=== PATIENT | female | born 1950 | race Caucasian/White ===

== ENCOUNTER 2016-07-03 14:13 | Emergency (ER) | payer MEDICARE, OTHER ==
--- NOTE | 2016-07-03 14:24 | EDM.PDOC ---
ED HPI GENERAL MEDICAL PROBLEM - General Stated Complaint: RT HAND SOLLOWEN Time Seen by Provider: 07/03/16 14:20 Source of Information: Reports: Patient History Limitations: Reports: No limitations - History of Present Illness INITIAL COMMENTS - FREE TEXT/NARRATIVE: HISTORY AND PHYSICAL: [65-year-old female who presented with edema after surgery] History of Present Illness: [Recent surgery to her right hand thumb she has eczema and Harry wrap is very tight] Review of Systems: As per history of present illness and below otherwise all systems reviewed and negative. Past medical history: As per history of present illness and as reviewed below otherwise noncontributory. Surgical history: As per history of present illness and as reviewed below otherwise noncontributory. Social history: No reported history of drug or alcohol abuse. Family history: As per history of present illness and as reviewed below otherwise noncontributory. Physical exam: Alert and oriented female answering questions appropriately HEENT: Atraumatic, normocehpalic, pupils reactive, negative for conjunctival pallor or scleral icterus, mucous membranes moist, throat clear, neck supple, nontender, trachea midline. Lungs: Clear to auscultation, breath sounds equal bilaterally, chest non tender. Heart: S1S2, regular, negative for clicks, rubs, or JVD. Abdomen: Soft, nondistended, nontender. Negative for masses or hepatossplenmegaly. Negative for costovertebral tenderness. Pelvis: Stable nontender. Genitourinary: Deferred. Rectal: Deferred Extremities: Right hand dorsum of hand with edema fingers are cool bilateral hands, sensation is intact, cap refill 3 seconds, negative for cords or calf pain. Neurovascular unremarkable. Neuro: Awake, alert, oriented. Cranial nerves II through XII unremarkable. Cerebellum unremarkable. Motor and sensory unremarkable throughout. Exam nonfocal. Harry wrap was loosened and improvement to circulation was noted. The patient expressed some relief. Diagnostics: [] Therapeutics: [Loosening of Harry wrap] Impression: [Postoperative edema] Plan: [Continue to use the sling that you have constantly hand above her heart Followup with your surgeon on Wednesday, July 07 as previously scheduled] Definitive disposition and diagnosis as appropriate pending reevaluation and review of above. Onset: today Duration: Hour(s): - Related Data Allergies Allergy/AdvReac Type Severity Reaction Status Date / Time Penicillins Allergy Rash Verified 01/20/16 09:35 Home Meds: Home Meds Omeprazole Magnesium [Prilosec Otc] 20 mg PO DAILY 03/18/15 [History] Pregabalin [Lyrica] 75 mg PO QAM 03/18/15 [History] Pregabalin [Lyrica] 150 mg PO BEDTIME 03/18/15 [History] Rivaroxaban [Xarelto] 15 mg PO BID #20 tablet 12/30/15 [Rx] DULoxetine [Cymbalta] 01/20/16 [History] Past Medical History Cardiovascular History: Reports: Blood clots/VTE/DVT Respiratory History: Reports: None Gastrointestinal History: Reports: GERD 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 History: Reports: None Hematologic History: Reports: None Immunologic History: Reports: None Oncologic (Cancer) History: Reports: Breast - Infectious Disease History Infectious Disease History: Reports: Chicken pox, Measles, Mumps - Past Surgical History Head Surgeries/Procedures: Reports: None HEENT Surgical History: Reports: Tonsillectomy Musculoskeletal Surgical History: Reports: Arthroscopic knee, Joint replacement Oncologic Surgical History: Reports: Mastectomy Other Oncologic Surgeries/Procedures: L mastectomy Social & Family History - Family History Family Medical History: Noncontributory - Tobacco Use Smoking Status *Q: Never Smoker Second Hand Smoke Exposure: No - Caffeine Use Caffeine Use: Reports: Soda - Alcohol Use Days Per Week of Alcohol Use: 0 - Recreational Drug Use Recreational Drug Use: No ED ROS GENERAL - Review of Systems Review Of Systems: ROS reveals no pertinent complaints other than HPI. ED EXAM, GENERAL - Physical Exam Exam: See Below (see dictation) Departure - Departure Time of Disposition: 14:23 Disposition: Home, Self-Care 01 Condition: good Clinical Impression: Edema Qualifiers: Edema type: localized Qualified Code(s): R60.0 - Localized edema Additional Instructions: The following information is given to patients seen in the emergency department who are being discharged to home. This information is to outline your options for follow-up care. We provide all patients seen in our emergency department with a follow-up referral. The need for follow-up, as well as the timing and circumstances, are variable depending upon the specifics of your emergency department visit. If you don't have a primary care physician on staff, we will provide you with a referral. We always advise you to contact your personal physician following an emergency department visit to inform them of the circumstance of the visit and for follow-up with them and/or the need for any referrals to a consulting specialist. The emergency department will also refer you to a specialist when appropriate. This referral assures that you have the opportunity for followup care with a specialist. All of these measure are taken in an effort to provide you with optimal care, which includes your followup. Under all circumstances we always encourage you to contact your private physician who remains a resource for coordinating your care. When calling for followup care, please make the office aware that this follow-up is from your recent emergency room visit. If for any reason you are refused follow-up, please contact the [facility] emergency department at and asked to speak to the emergency department charge nurse. Although up with your surgeon on Wednesday, July 07 as previously scheduled
[2016-07-03 14:39] VITALS: BP 131/80
== END 2016-07-03 14:28 | disposition home or self-care (01) ==
LOC: MW.ED 14:13
DX: R60.0 Localized edema (principal); Z79.899 Other long term (current) drug therapy; Z88.0 Allergy status to penicillin
CPT/HCPCS: 99282; 99283

== ENCOUNTER 2017-03-01 21:53 | Emergency (ER) | payer MEDICARE, OTHER ==
--- NOTE | 2017-03-01 21:56 | EDM.PDOC ---
ED HPI GENERAL MEDICAL PROBLEM - General Stated Complaint: COUGH Time Seen by Provider: 03/01/17 23:11 - History of Present Illness INITIAL COMMENTS - FREE TEXT/NARRATIVE: HISTORY AND PHYSICAL: History of present illness: Patient 66-year-old female presents with concern of cough over the last several days she has history of pulmonary embolism denies chest pain fever chills nausea vomiting or other complaints. Review of systems: As per history of present illness and below otherwise all systems reviewed and negative. Past medical history: As per history of present illness and as reviewed below otherwise noncontributory. Surgical history: As per history of present illness and as reviewed below otherwise noncontributory. Social history: No reported history of drug or alcohol abuse. Family history: As per history of present illness and as reviewed below otherwise noncontributory. Physical exam: HEENT: Atraumatic, normocephalic, pupils reactive, negative for conjunctival pallor or scleral icterus, mucous membranes moist, throat clear, neck supple, nontender, trachea midline. Lungs: Clear to auscultation, breath sounds equal bilaterally, chest nontender. Heart: S1S2, regular, negative for clicks, rubs, or JVD. Abdomen: Soft, nondistended, nontender. Negative for masses or hepatosplenomegaly. Negative for costovertebral tenderness. Pelvis: Stable nontender. Genitourinary: Deferred. Rectal: Deferred. Extremities: Atraumatic, negative for cords or calf pain. Neurovascular unremarkable. Neuro: Awake, alert, oriented. Cranial nerves II through XII unremarkable. Cerebellum unremarkable. Motor and sensory unremarkable throughout. Exam nonfocal. Diagnostics: CBC CMP influenza screen chest x-ray EKG BNP Therapeutics: None Impression: #1 pneumonitis #2 history of pulmonary embolus Definitive disposition and diagnosis as appropriate pending reevaluation and review of above. - Related Data Allergies Allergy/AdvReac Type Severity Reaction Status Date / Time Penicillins Allergy Rash Verified 07/03/16 14:25 Home Meds: Home Meds Omeprazole Magnesium [Prilosec Otc] 20 mg PO DAILY 03/18/15 [History] Pregabalin [Lyrica] 75 mg PO QAM 03/18/15 [History] Pregabalin [Lyrica] 150 mg PO BEDTIME 03/18/15 [History] Rivaroxaban [Xarelto] 15 mg PO BID #20 tablet 10/24/16 [Rx] DULoxetine [Cymbalta] 20 mg PO DAILY 01/20/16 [History] Gabapentin [Neurontin] 400 mg PO BID 03/01/17 [History] Past Medical History Cardiovascular History: Reports: Blood Clots/VTE/DVT Respiratory History: Reports: None Gastrointestinal History: Reports: GERD 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 History: Reports: None Hematologic History: Reports: None Immunologic History: Reports: None Oncologic (Cancer) History: Reports: Breast - Infectious Disease History Infectious Disease History: Reports: Chicken Pox, Measles, Mumps - Past Surgical History Head Surgeries/Procedures: Reports: None HEENT Surgical History: Reports: Tonsillectomy Musculoskeletal Surgical History: Reports: Arthroscopic Knee, Joint Replacement Oncologic Surgical History: Reports: Mastectomy Other Oncologic Surgeries/Procedures: L mastectomy Social & Family History - Family History Family Medical History: Noncontributory - Tobacco Use Smoking Status *Q: Never Smoker Second Hand Smoke Exposure: No - Caffeine Use Caffeine Use: Reports: Soda - Alcohol Use Days Per Week of Alcohol Use: 0 - Recreational Drug Use Recreational Drug Use: No ED ROS GENERAL - Review of Systems Review Of Systems: ROS reveals no pertinent complaints other than HPI. ED EXAM, GENERAL - Physical Exam Exam: See Below (See dictation) Course - Vital Signs Last Recorded V/S: Last Vital Signs Temp 37.3 C 03/01/17 22:08 Pulse 87 03/01/17 22:45 Resp 18 03/01/17 22:45 BP 126/79 03/01/17 22:45 Pulse Ox 97 03/01/17 22:45 - Orders/Labs/Meds Orders: Active Orders 24 hr Category Date Time Status RT Aerosol Therapy [RC] ASDIRECTED Care 03/01/17 22:15 Active Chest 2V [CR] Stat Exams 03/01/17 21:57 Taken Labs: Laboratory Tests 03/01/17 03/01/17 03/01/17 Range/Units 22:08 22:08 22:08 WBC 6.75 (4.0-11.0) K/uL RBC 4.54 (4.30-5.90) M/uL Hgb 13.5 (12.0-16.0) g/dL Hct 41.8 (36.0-46.0) % MCV 92.1 (80.0-98.0) fL MCH 29.7 (27.0-32.0) pg MCHC 32.3 (31.0-37.0) g/dL RDW Std Deviation 44.8 (28.0-62.0) fl RDW Coeff of Brook 13 (11.0-15.0) % Plt Count 252 (150-400) K/uL MPV 9.20 (7.40-12.00) fL Neut % (Auto) 60.4 (48.0-80.0) % Lymph % (Auto) 23.3 (16.0-40.0) % Williamson % (Auto) 12.0 (0.0-15.0) % Eos % (Auto) 3.7 (0.0-7.0) % Baso % (Auto) 0.6 (0.0-1.5) % Neut # (Auto) 4.1 (1.4-5.7) K/uL Lymph # (Auto) 1.6 (0.6-2.4) K/uL Williamson # (Auto) 0.8 (0.0-0.8) K/uL Eos # (Auto) 0.3 (0.0-0.7) K/uL Baso # (Auto) 0.0 (0.0-0.1) K/uL Nucleated RBC % 0.0 /100WBC Nucleated RBCs # 0 K/uL Sodium 139 (136-146) mmol/L Potassium 4.5 (3.5-5.1) mmol/L Chloride 103 (98-110) mmol/L Carbon Dioxide 25 (21-31) mmol/L BUN 16 (6.0-23.0) mg/dL Creatinine 1.1 (0.6-1.5) mg/dL Est Cr Clr Drug Dosing 52.58 mL/min Estimated GFR (MDRD) 49.7 ml/min Glucose 189 H (60-110) mg/dL Calcium 10.9 H (8.8-10.8) mg/dL Total Bilirubin 0.4 (0.1-1.5) mg/dL AST 17 (5-40) IU/L ALT 15 (8-54) IU/L Alkaline Phosphatase 128 (40-150) B-Natriuretic Peptide 36 (<100) PG/ML Total Protein 7.6 (6.0-8.0) g/dL Albumin 4.2 (3.4-4.8) g/dL Globulin 3.4 (2.0-3.5) g/dL Albumin/Globulin Ratio 1.2 L (1.3-2.8) Meds: Medications Discontinued Medications Generic Name Dose Route Start Last Admin Trade Name Christian PRN Reason Stop Dose Admin Albuterol/Ipratropium 3 ml 03/01/17 22:15 03/01/17 22:25 Duoneb 3.0-0.5 Mg/3 Ml NEB 03/01/17 22:16 3 ml ONETIME ONE Administration Departure - Departure Time of Disposition: 23:11 Disposition: Home, Self-Care 01 Condition: Good Clinical Impression: Pneumonitis - Discharge Information Additional Instructions: The following information is given to patients seen in the emergency department who are being discharged to home. This information is to outline your options for follow-up care. We provide all patients seen in our emergency department with a follow-up referral. The need for follow-up, as well as the timing and circumstances, are variable depending upon the specifics of your emergency department visit. If you don't have a primary care physician on staff, we will provide you with a referral. We always advise you to contact your personal physician following an emergency department visit to inform them of the circumstance of the visit and for follow-up with them and/or the need for any referrals to a consulting specialist. The emergency department will also refer you to a specialist when appropriate. This referral assures that you have the opportunity for followup care with a specialist. All of these measure are taken in an effort to provide you with optimal care, which includes your followup. Under all circumstances we always encourage you to contact your private physician who remains a resource for coordinating your care. When calling for followup care, please make the office aware that this follow-up is from your recent emergency room visit. If for any reason you are refused follow-up, please contact the [facility] emergency department at and asked to speak to the emergency department charge nurse. Levaquin albuterol as prescribed follow-up primary medical doctor wanted today' s return as needed as discussed - My Orders Last 24 Hours: My Active Orders 03/01/17 21:57 Chest 2V [CR] Stat 03/01/17 22:15 RT Aerosol Therapy [RC] ASDIRECTED - Assessment/Plan Last 24 Hours: My Active Orders 03/01/17 21:57 Chest 2V [CR] Stat 03/01/17 22:15 RT Aerosol Therapy [RC] ASDIRECTED
[2017-03-01] MEDS ORDERED: Albuterol/Ipratropium 3.0-0.5 MG/3 ML Neb Soln NEB ONE (22:15)
[2017-03-01 23:25] VITALS: BP 127/77
--- NOTE | 2017-03-02 16:47 | CR ---
EXAM DATE: 03/01/17 PATIENT'S AGE: 66 Patient: LUIS ANTONIO HILL Facility: [place], [place] Site . Site : 1950 Study: XRay Chest [id number] 11:04:47 PM Ordering Physician: Doctor Barahona Final Report: Indication: Cough and congestion Technique: Chest 2 views Comparison: None Findings/Impression: Cardiovascular and mediastinum: Upper limits of normal cardiac size. An ectatic , unfolded aorta. Lungs and pleural spaces: Mild left basilar subsegmental atelectasis or scarring. No consolidation or pleural effusions. Bones and soft tissues: Multiple surgical clips in the left breast, axilla and upper abdomen. Apparent mild anterior compression deformity of a lower thoracic vertebral body. Dictated by Frank Zarco MD @ 03/01/2017 11:21:33 PM Dictated by: Frank Zarco MD @ 03/01/2017 23:23:00 (Electronic Signature) Report Signed by Proxy. TALIA
== END 2017-03-01 23:25 | disposition home or self-care (01) ==
LOC: MW.ED 21:53
DX: J18.9 Pneumonia, unspecified organism (principal); Z88.0 Allergy status to penicillin; Z79.899 Other long term (current) drug therapy; Z86.711 Personal history of pulmonary embolism
CPT/HCPCS: 36415; 71020; 71020-26; 80053; 83880; 85025; 87804; 94640; 99283; 99284-25

== ENCOUNTER 2018-05-18 13:24 | Emergency (ER) | payer MEDICARE, OTHER ==
--- NOTE | 2018-05-18 15:27 | US ---
ULTRASOUND EXAMINATION OF the left lower extremity WITH DOPPLER HISTORY: Pain FINDINGS: Examination of the left leg was performed from the groin to the calf region. All visualized segments including common femoral, proximal greater saphenous, superficial femoral, popliteal and calf veins appear patent with good compressibility and augmentation. There is no evidence of deep vein thrombosis. IMPRESSION: No evidence of a DVT.
--- NOTE | 2018-05-18 15:59 | EDM.PDOC ---
ED HPI GENERAL MEDICAL PROBLEM - General Chief Complaint: General Stated Complaint: LT LEG PAIN Time Seen by Provider: 05/18/18 14:13 Source of Information: Reports: Patient History Limitations: Reports: No Limitations - History of Present Illness INITIAL COMMENTS - FREE TEXT/NARRATIVE: History of present illness: []Patient has had pain in her left lower extremity and for the past 2 days. She has a history of blood clots in her legs and her lungs in the past. She denies any fevers, trauma, chest pain or shortness of breath. Review of systems: As per history of present illness and below otherwise all systems reviewed and negative. Past medical history: As per history of present illness and as reviewed below otherwise noncontributory. Surgical history: As per history of present illness and as reviewed below otherwise noncontributory. Social history: No reported history of drug or alcohol abuse. Family history: As per history of present illness and as reviewed below otherwise noncontributory. Physical exam: General: Well developed, well nourished in NAD HEENT: Atraumatic, normocephalic, pupils reactive, negative for conjunctival pallor or scleral icterus, mucous membranes moist, throat clear, neck supple, nontender, trachea midline. Lungs: Clear to auscultation, breath sounds equal bilaterally, chest nontender. Heart: S1S2, regular, negative for clicks, rubs, or JVD. Abdomen: NABS, Soft, nondistended, nontender. Negative for masses or hepatosplenomegaly. Negative for costovertebral tenderness. Pelvis: Stable nontender. Genitourinary: Deferred. Rectal: Deferred. Extremities: Atraumatic, negative for cords or calf pain. Pain is on the lateral leg and there is no distal edema Neurovascular unremarkable. Neuro: Awake, alert, oriented. Cranial nerves II through XII unremarkable. Cerebellum unremarkable. Motor and sensory unremarkable throughout. Exam nonfocal. Skin:warm and dry Diagnostics: Doppler ultrasound left lower extremity negative for DVT Therapeutics: None ED Course: Stable Impression: Left leg pain Prescriptions: None Plan: PRIMARY care Definitive disposition and diagnosis as appropriate pending reevaluation and review of above. 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: Reports: None Endocrine/Metabolic History: Reports: Diabetes, Type II Hematologic History: Reports: None Immunologic History: Reports: None Oncologic (Cancer) History: Reports: Breast - Infectious Disease History Infectious Disease History: Reports: Chicken Pox, Measles, Mumps - Past Surgical History Head Surgeries/Procedures: Reports: None HEENT Surgical History: Reports: Tonsillectomy Musculoskeletal Surgical History: Reports: Arthroscopic Knee, Joint Replacement Oncologic Surgical History: Reports: Mastectomy Other Oncologic Surgeries/Procedures: L mastectomy Social & Family History - Family History Family Medical History: Noncontributory - Tobacco Use Smoking Status *Q: Never Smoker Second Hand Smoke Exposure: No - Caffeine Use Caffeine Use: Reports: Coffee - Recreational Drug Use Recreational Drug Use: No ED ROS GENERAL - Review of Systems Review Of Systems: ROS reveals no pertinent complaints other than HPI. ED EXAM, GENERAL - Physical Exam Exam: See Below (The history of present illness) Course - Vital Signs Last Recorded V/S: Last Vital Signs Temp 98.1 F 05/18/18 13:42 Pulse 90 05/18/18 13:42 Resp 16 05/18/18 13:42 BP 127/81 05/18/18 13:42 Pulse Ox 100 05/18/18 13:42 Departure - Departure Time of Disposition: 15:59 Disposition: Home, Self-Care 01 Condition: Good Clinical Impression: Leg pain, left - Discharge Information *PRESCRIPTION DRUG MONITORING PROGRAM REVIEWED*: Not Applicable *COPY OF PRESCRIPTION DRUG MONITORING REPORT IN PATIENT MADISYN: Not Applicable Referrals: Angeli Ojeda NP [Primary Care Provider] - Additional Instructions: The following information is given to patients seen in the emergency department who are being discharged to home. This information is to outline your options for follow-up care. We provide all patients seen in our emergency department with a follow-up referral. The need for follow-up, as well as the timing and circumstances, are variable depending upon the specifics of your emergency department visit. If you don't have a primary care physician on staff, we will provide you with a referral. We always advise you to contact your personal physician following an emergency department visit to inform them of the circumstance of the visit and for follow-up with them and/or the need for any referrals to a consulting specialist. The emergency department will also refer you to a specialist when appropriate. This referral assures that you have the opportunity for follow-up care with a specialist. All of these measure are taken in an effort to provide you with optimal care, which includes your follow-up. Under all circumstances we always encourage you to contact your private physician who remains a resource for coordinating your care. When calling for follow-up care, please make the office aware that this follow-up is from your recent emergency room visit. If for any reason you are refused follow-up, please contact the [facility] Emergency Department at and asked to speak to the emergency department charge nurse. [facility] Primary Care [address] [place] [id number]
[2018-05-18 16:21] VITALS: BP 134/77
== END 2018-05-18 16:18 | disposition home or self-care (01) ==
LOC: MW.ED 13:24
DX: M79.605 Pain in left leg (principal); Z88.0 Allergy status to penicillin; Z79.899 Other long term (current) drug therapy; E11.9 Type 2 diabetes mellitus without complications
CPT/HCPCS: 93971-26-LT; 93971-LT; 99283; 99284-25

== ENCOUNTER 2019-01-26 23:55 | Emergency (ER) | payer MEDICARE, OTHER ==
--- NOTE | 2019-01-26 23:59 | EDM.PDOC ---
ED HPI GENERAL MEDICAL PROBLEM - General Stated Complaint: NOSE BLEED Time Seen by Provider: 01/26/19 23:59 Source of Information: Reports: Patient - History of Present Illness INITIAL COMMENTS - FREE TEXT/NARRATIVE: HISTORY AND PHYSICAL: History of present illness: [Patient on 0 though presents with epistaxis after picking her nose no fever nausea vomiting chills sweats] Review of systems: As per history of present illness and below otherwise all systems reviewed and negative. Past medical history: As per history of present illness and as reviewed below otherwise noncontributory. Surgical history: As per history of present illness and as reviewed below otherwise noncontributory. Social history: No reported history of drug or alcohol abuse. Family history: As per history of present illness and as reviewed below otherwise noncontributory. Physical exam: HEENT: Atraumatic, normocephalic, pupils reactive, negative for conjunctival pallor or scleral icterus, mucous membranes moist, throat clear, neck supple, nontender, trachea midline. Small anterior lesion on the left no air resolved with cautery Lungs: Clear to auscultation, breath sounds equal bilaterally, chest nontender. Heart: S1S2, regular, negative for clicks, rubs, or JVD. Abdomen: Soft, nondistended, nontender. Negative for masses or hepatosplenomegaly. Negative for costovertebral tenderness. Pelvis: Stable nontender. Genitourinary: Deferred. Rectal: Deferred. Extremities: Atraumatic, negative for cords or calf pain. Neurovascular unremarkable. Neuro: Awake, alert, oriented. Cranial nerves II through XII unremarkable. Cerebellum unremarkable. Motor and sensory unremarkable throughout. Exam nonfocal. Diagnostics: [CBC INR ] Therapeutics: [Silver nitrate ] Impression: [Epistaxis resolved ] Definitive disposition and diagnosis as appropriate pending reevaluation and review of above. 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: Psychiatric History: Reports: None Endocrine/Metabolic History: Reports: Diabetes, Type II Hematologic History: Reports: None Immunologic History: Reports: None Oncologic (Cancer) History: Reports: Breast - Infectious Disease History Infectious Disease History: Reports: Chicken Pox, Measles, Mumps - Past Surgical History Head Surgeries/Procedures: Reports: None HEENT Surgical History: Reports: Tonsillectomy Musculoskeletal Surgical History: Reports: Arthroscopic Knee, Joint Replacement Oncologic Surgical History: Reports: Mastectomy Other Oncologic Surgeries/Procedures: L mastectomy Social & Family History - Family History Family Medical History: Noncontributory - Caffeine Use Caffeine Use: Reports: Coffee ED ROS GENERAL - Review of Systems Review Of Systems: See Below ED EXAM, GENERAL - Physical Exam Exam: See Below Course - Vital Signs Last Recorded V/S: Last Vital Signs Temp 96.8 F 01/27/19 00:06 Pulse 88 01/27/19 00:06 Resp 18 01/27/19 00:06 BP 153/92 H 01/27/19 00:06 Pulse Ox 98 01/27/19 00:06 - Orders/Labs/Meds Labs: Laboratory Tests 01/27/19 01/27/19 Range/Units 00:16 00:16 WBC 6.70 (4.0-11.0) K/uL RBC 4.56 (4.30-5.90) M/uL Hgb 13.6 (12.0-16.0) g/dL Hct 41.0 (36.0-46.0) % MCV 89.9 (80.0-98.0) fL MCH 29.8 (27.0-32.0) pg MCHC 33.2 (31.0-37.0) g/dL RDW Std Deviation 45.4 (28.0-62.0) fl RDW Coeff of Brook 14 (11.0-15.0) % Plt Count 261 (150-400) K/uL MPV 9.10 (7.40-12.00) fL Neut % (Auto) 57.6 (48.0-80.0) % Lymph % (Auto) 26.9 (16.0-40.0) % [place] % (Auto) 12.2 (0.0-15.0) % Eos % (Auto) 2.7 (0.0-7.0) % Baso % (Auto) 0.6 (0.0-1.5) % Neut # (Auto) 3.9 (1.4-5.7) K/uL Lymph # (Auto) 1.8 (0.6-2.4) K/uL [place] # (Auto) 0.8 (0.0-0.8) K/uL Eos # (Auto) 0.2 (0.0-0.7) K/uL Baso # (Auto) 0.0 (0.0-0.1) K/uL INR 1.25 Departure - Departure Time of Disposition: 00:49 Disposition: Home, Self-Care 01 Condition: Good Clinical Impression: Epistaxis - Discharge Information Additional Instructions: The following information is given to patients seen in the emergency department who are being discharged to home. This information is to outline your options for follow-up care. We provide all patients seen in our emergency department with a follow-up referral. The need for follow-up, as well as the timing and circumstances, are variable depending upon the specifics of your emergency department visit. If you don't have a primary care physician on staff, we will provide you with a referral. We always advise you to contact your personal physician following an emergency department visit to inform them of the circumstance of the visit and for follow-up with them and/or the need for any referrals to a consulting specialist. The emergency department will also refer you to a specialist when appropriate. This referral assures that you have the opportunity for follow-up care with a specialist. All of these measure are taken in an effort to provide you with optimal care, which includes your follow-up. Under all circumstances we always encourage you to contact your private physician who remains a resource for coordinating your care. When calling for follow-up care, please make the office aware that this follow-up is from your recent emergency room visit. If for any reason you are refused follow-up, please contact the [facility] emergency department at and asked to speak to the emergency department charge nurse.
[2019-01-27 01:27] VITALS: BP 125/73; PULSE 84
== END 2019-01-27 01:15 | disposition home or self-care (01) ==
LOC: MW.ED 23:55
DX: R04.0 Epistaxis (principal); E11.9 Type 2 diabetes mellitus without complications; Z88.0 Allergy status to penicillin; Z79.899 Other long term (current) drug therapy; Z98.890 Other specified postprocedural states
CPT/HCPCS: 36415; 85025; 85610; 99283

== ENCOUNTER 2019-08-28 15:08 | Emergency (ER) | payer MEDICARE, OTHER ==
[2019-08-28] MEDS ORDERED: Sodium Chloride 0.9% 1,000 ML IV ONE (15:23)
--- NOTE | 2019-08-28 15:29 | EDM.PDOC ---
ED HPI GENERAL MEDICAL PROBLEM - General Chief Complaint: Flank Pain Stated Complaint: BACK/SIDE PAIN Time Seen by Provider: 08/28/19 15:17 Source of Information: Reports: Patient History Limitations: Reports: No Limitations - History of Present Illness INITIAL COMMENTS - FREE TEXT/NARRATIVE: HISTORY AND PHYSICAL: History of present illness: Patient is a 68-year-old female who presents to the emergency room with complaints of left flank pain that started approximately an hour prior to arrival. She describes the pain as a sharp pain that starts in the flank and does wrap into the left mid abdomen. Several hours ago she was voiding without any difficulty but has tried to go twice and states she is only able to go a small amount. Concerned she has a kidney stone as she has had these in the past. Last kidney stone was approximately 1 year ago in which she did see Dr. Wolff. At that time the kidney stones were "small enough to pass on their own". Patient denies any fever, chills, headache, change in vision, syncope or near syncope. Denies any chest pain, back pain, shortness of breath or cough. Denies any vomiting, diarrhea, or constipation. Has not noted any blood in urine or stool. Patient has been eating and drinking appropriately. Review of systems: As per history of present illness and below otherwise all systems reviewed and negative. Past medical history: As per history of present illness and as reviewed below otherwise noncontributory. Surgical history: As per history of present illness and as reviewed below otherwise noncontributory. Social history: See social history for further information Family history: As per history of present illness and as reviewed below otherwise noncontributory. Physical exam: General: Well-developed and well-nourished 68-year-old female. Alert and oriented. Nontoxic-appearing and in no acute distress. HEENT: Atraumatic, normocephalic, pupils equal and reactive bilaterally, negative for conjunctival pallor or scleral icterus, mucous membranes moist, TMs normal bilaterally, throat clear, neck supple, nontender, trachea midline. No drooling or trismus noted. No meningeal signs. No hot potato voice noted. Lungs: Clear to auscultation, breath sounds equal bilaterally, chest nontender. Heart: S1S2, regular rate and rhythm without overt murmur Abdomen: Soft, nondistended, mild left upper/lower quadrant tenderness. Negative for masses or hepatosplenomegaly. Mild left sided costovertebral tenderness. Stable pelvis. Skin: Intact, warm, dry. No lesions or rashes noted. Extremities: Atraumatic, moves all extremities per self without difficulty or deficits, negative for cords or calf pain. Neurovascular unremarkable. Neuro: Awake, alert, oriented. Cranial nerves II through XII unremarkable. Cerebellum unremarkable. Motor and sensory unremarkable throughout. Exam nonfocal. Notes: Prominent left-sided hydronephrosis caused by a 3.6 mm obstructing stone near the UVJ. Small nonobstructing calculi within both kidneys. Patient voided, bladder scan was done post void as she was complaining of feeling like she was unable to fully empty her bladder. Post void she had 151 mL's. Lab work is unremarkable. Nursing staff had difficulty starting an IV as they only had the use of one arm due to previous history of breast cancer. Patient requests no further attempts for establishing an IV for the fluids. Oral tramadol and Flomax given. Patient states she is still not comfortable and has vomited x 1, IM morphine given and Zofran. We will continue to monitor. Patient feels improved after medications. Dr Wolff was consulted on this case. Patient will be discharged with Flomax and pain medication. Patient instructed to set up an appointment tomorrow with Dr. Wolff. Supportive care measures were reviewed and discussed. Voices understanding and is agreeable to plan of care. Denies any further questions or concerns at this time. Diagnostics: CBC, CMP, UA, CT abdomen/pelvis Therapeutics: Zofran, Flomax, Tramadol Prescription: Flomax, Supply, Zofran Impression: Kidney stone Plan: 1. You have a 3.6mm stone in the left kidney. Strain your urine. 2. Increase your fluids. Take your medications as directed. 3. Follow up with urology as we discussed. Call Dr Wolff tomorrow morning to set up a follow up appointment. Return to the ED as needed as discussed. Definitive disposition and diagnosis as appropriate pending reevaluation and review of above. left flank pain Pain Score (Numeric/FACES): 9 - Related Data Allergies Allergy/AdvReac Type Severity Reaction Status Date / Time Penicillins Allergy Rash Verified 08/28/19 15:16 Home Meds: Home Meds Rivaroxaban [Xarelto] 15 mg PO BID #20 tablet 12/30/15 [Rx] DULoxetine [Cymbalta] 20 mg PO DAILY 01/20/16 [History] Gabapentin [Neurontin] 400 mg PO BID 03/01/17 [History] Acetaminophen/HYDROcodone [Supply 325-5 MG] 1 tab PO Q4H PRN #20 tablet 08/28/19 [Rx] Ondansetron [Zofran ODT] 4 mg PO Q6H PRN #8 tab.dis 08/28/19 [Rx] Tamsulosin HCl [Flomax] 0.4 mg PO DAILY 5 Days #5 capsule 08/28/19 [Rx] metFORMIN [Glucophage XR] mg PO BID 08/28/19 [History] Past Medical History - Past Health History Medical/Surgical History: Denies Medical/Surgical History HEENT History: Reports: None Cardiovascular History: Reports: Blood Clots/VTE/DVT Respiratory History: Reports: None Gastrointestinal History: Reports: GERD Genitourinary History: Reports: None BODY FITTER History: Reports: Musculoskeletal History: Reports: None Neurological History: Reports: None Psychiatric History: Reports: None Endocrine/Metabolic History: Reports: Diabetes, Type II 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 Hematologic History: Reports: None Immunologic History: Reports: None Oncologic (Cancer) History: Reports: Breast Dermatologic History: Reports: None - Infectious Disease History Infectious Disease History: Reports: Chicken Pox, Measles, Mumps - Past Surgical History Head Surgeries/Procedures: Reports: None HEENT Surgical History: Reports: Tonsillectomy Female Surgical History: Reports: Other (See Below) Other Female Surgeries/Procedures: Breast Surgery - Left Musculoskeletal Surgical History: Reports: Arthroscopic Knee, Joint Replacement Oncologic Surgical History: Reports: Mastectomy Other Oncologic Surgeries/Procedures: L mastectomy Social & Family History - Family History Family Medical History: Noncontributory - Tobacco Use Smoking Status *Q: Never Smoker - Caffeine Use Caffeine Use: Reports: Soda - Recreational Drug Use Recreational Drug Use: No ED ROS GENERAL - Review of Systems Review Of Systems: Comprehensive ROS is negative, except as noted in HPI. ED EXAM, RENAL/ - Physical Exam Exam: See Below (See dictation) Course - Vital Signs Last Recorded V/S: Last Vital Signs Temp 97.9 F 08/28/19 15:18 Pulse 88 08/28/19 18:10 Resp 17 08/28/19 15:18 BP 176/107 H 08/28/19 18:10 Pulse Ox 91 L 08/28/19 18:10 - Orders/Labs/Meds Orders: Active Orders 24 hr Category Date Time Status Bladder Scan [RC] ASDIRECTED Care 08/28/19 16:37 Active Communication Order [RC] STAT Care 08/28/19 17:43 Active CULTURE URINE [RM] Stat Lab 08/28/19 16:36 Received Labs: Laboratory Tests 08/28/19 08/28/19 08/28/19 Range/Units 15:35 15:35 16:36 WBC 7.10 (4.0-11.0) K/uL RBC 4.26 L (4.30-5.90) M/uL Hgb 12.7 (12.0-16.0) g/dL Hct 40.6 (36.0-46.0) % MCV 95.3 (80.0-98.0) fL MCH 29.8 (27.0-32.0) pg MCHC 31.3 (31.0-37.0) g/dL RDW Std Deviation 46.3 (28.0-62.0) fl RDW Coeff of Brook 13 (11.0-15.0) % Plt Count 278 (150-400) K/uL MPV 9.20 (7.40-12.00) fL Neut % (Auto) 64.8 (48.0-80.0) % Lymph % (Auto) 23.5 (16.0-40.0) % [place] % (Auto) 8.6 (0.0-15.0) % Eos % (Auto) 2.7 (0.0-7.0) % Baso % (Auto) 0.4 (0.0-1.5) % Neut # (Auto) 4.6 (1.4-5.7) K/uL Lymph # (Auto) 1.7 (0.6-2.4) K/uL [place] # (Auto) 0.6 (0.0-0.8) K/uL Eos # (Auto) 0.2 (0.0-0.7) K/uL Baso # (Auto) 0.0 (0.0-0.1) K/uL Nucleated RBC % 0.0 /100WBC Nucleated RBCs # 0 K/uL Sodium 138 (136-145) mmol/L Potassium 4.2 (3.5-5.1) mmol/L Chloride 101 (98-107) mmol/L Carbon Dioxide 29.5 (21.0-32.0) mmol/L BUN 13 (7.0-18.0) mg/dL Creatinine 1.2 H (0.6-1.0) mg/dL Est Cr Clr Drug Dosing 46.89 mL/min Estimated GFR (MDRD) 44.7 ml/min Glucose 178 H (74-106) mg/dL Calcium 10.4 H (8.5-10.1) mg/dL Total Bilirubin 0.4 (0.2-1.0) mg/dL AST 21 (15-37) IU/L ALT 28 (14-63) IU/L Alkaline Phosphatase 115 (46-116) U/L Total Protein 7.4 (6.4-8.2) g/dL Albumin 4.1 (3.4-5.0) g/dL Globulin 3.3 (2.6-4.0) g/dL Albumin/Globulin Ratio 1.2 (0.9-1.6) Urine Color YELLOW Urine Appearance SLT CLOUDY Urine pH 7.5 (5.0-8.0) Ur Specific [place] 1.020 (1.001-1.035) Urine Protein NEGATIVE (NEGATIVE) mg/dL Urine Glucose (UA) NEGATIVE (NEGATIVE) mg/dL Urine Ketones NEGATIVE (NEGATIVE) mg/dL Urine Occult Blood LARGE H (NEGATIVE) Urine Nitrite NEGATIVE (NEGATIVE) Urine Bilirubin NEGATIVE (NEGATIVE) Urine Urobilinogen 0.2 (<2.0) EU/dL Ur Leukocyte Esterase TRACE H (NEGATIVE) Urine RBC 10-30 (0-2/HPF) Urine WBC 2-3 (0-5/HPF) Ur Epithelial Cells OCCASIONAL (NONE-FEW) Amorphous Sediment FEW (NEGATIVE) Urine Bacteria FEW (NEGATIVE) Urine Mucus FEW (NONE-MOD) Meds: Medications Discontinued Medications Generic Name Dose Route Start Last Admin Trade Name Freq PRN Reason Stop Dose Admin Sodium Chloride 1,000 mls @ 999 mls/hr 08/28/19 15:23 08/28/19 17:09 Normal Saline IV 08/28/19 16:23 Not Given STAT ONE Morphine Sulfate 4 mg 08/28/19 17:23 08/28/19 17:32 Morphine IM 08/28/19 17:24 4 mg ONETIME ONE Administration Ondansetron HCl 4 mg 08/28/19 18:34 08/28/19 18:36 Zofran Odt PO 08/28/19 18:35 4 mg ONETIME ONE Administration Ondansetron HCl Confirm 08/28/19 18:34 08/28/19 18:37 Zofran Odt Administered 08/28/19 18:35 Not Given Dose 4 mg .ROUTE .STK-MED ONE Tamsulosin HCl 0.4 mg 08/28/19 16:37 08/28/19 17:08 Flomax PO 08/28/19 16:38 0.4 mg ONETIME ONE Administration Tramadol HCl 50 mg 08/28/19 16:54 08/28/19 17:08 Ultram PO 08/28/19 16:55 50 mg ONETIME ONE Administration Departure - Departure Time of Disposition: 17:18 Disposition: Home, Self-Care 01 Clinical Impression: Kidney stone - Discharge Information Prescriptions: Tamsulosin HCl [Flomax] 0.4 mg PO DAILY 5 Days #5 capsule Acetaminophen/HYDROcodone [Supply 325-5 MG] 1 tab PO Q4H PRN #20 tablet PRN Reason: Pain Ondansetron [Zofran ODT] 4 mg PO Q6H PRN #8 tab.dis PRN Reason: Nausea Instructions: Kidney Stones, [id number] Referrals: Raz Wolff MD [Physician] - Kati Frost MD [Primary Care Provider] - Forms: ED Department Discharge Additional Instructions: The following information is given to patients seen in the emergency department who are being discharged to home. This information is to outline your options for follow-up care. We provide all patients seen in our emergency department with a follow-up referral. The need for follow-up, as well as the timing and circumstances, are variable depending upon the specifics of your emergency department visit. If you don't have a primary care physician on staff, we will provide you with a referral. We always advise you to contact your personal physician following an emergency department visit to inform them of the circumstance of the visit and for follow-up with them and/or the need for any referrals to a consulting specialist. The emergency department will also refer you to a specialist when appropriate. This referral assures that you have the opportunity for follow-up care with a specialist. All of these measure are taken in an effort to provide you with optimal care, which includes your follow-up. Under all circumstances we always encourage you to contact your private physician who remains a resource for coordinating your care. When calling for follow-up care, please make the office aware that this follow-up is from your re cent emergency room visit. If for any reason you are refused follow-up, please contact the [facility] Emergency Department at and asked to speak to the emergency department charge nurse. [facility] - Urology [address] [place] [id number] 1. You have a 3.6mm stone in the left kidney. Strain your urine. 2. Increase your fluids. Take your medications as directed. 3. Follow up with urology as we discussed. Call Dr Wolff tomorrow morning to s et up a follow up appointment. Return to the ED as needed as discussed. Sepsis Event Note (ED) - Evaluation Sepsis Screening Result: No Definite Risk - Focused Exam Vital Signs: Vital Signs Temp Pulse Resp BP Pulse Ox 08/28/19 18:10 88 176/107 H 91 L 08/28/19 17:42 80 171/96 H 96 08/28/19 17:12 88 169/100 H 97 08/28/19 15:18 97.9 F 83 17 169/98 H 98 - My Orders Last 24 Hours: My Active Orders 08/28/19 16:36 CULTURE URINE [RM] Stat 08/28/19 16:37 Bladder Scan [RC] ASDIRECTED 08/28/19 17:43 Communication Order [RC] STAT - Assessment/Plan Last 24 Hours: My Active Orders 08/28/19 16:36 CULTURE URINE [RM] Stat 08/28/19 16:37 Bladder Scan [RC] ASDIRECTED 08/28/19 17:43 Communication Order [RC] STAT
[2019-08-28 16:11] LABS: CARBON DIOXIDE,CO2 29.5 mmol/L (21.0-32.0); POTASSIUM,K 4.2 mmol/L (3.5-5.1)
--- NOTE | 2019-08-28 16:32 | CT ---
CT abdomen and pelvis Technique: Multiple axial sections were obtained from above the dome of the diaphragm inferiorly through the pubic symphysis. Intravenous and oral contrast not utilized. Study has been performed as a ureteral stone protocol. Comparison: Prior CT abdomen and pelvis study of 11/15/18. Findings: Left kidney shows multiple small calcifications compatible with nonobstructing calculi. Similar findings are noted within the right kidney. Left kidney shows dilated left renal pelvis and collecting system. Left ureter is dilated down to the bladder. There is an obstructing stone at the UVJ measuring about 3.6 mm. No additional ureteral calculi are seen. Right ureter shows no dilatation. Visualized lung bases show nothing acute. Noncontrast appearance of the liver shows no discrete abnormality. Adrenal glands show no nodule. Pancreas not well seen. Aorta shows no aneurysm. No retroperitoneal adenopathy or mesenteric abnormalities are noted. No pelvic mass or adenopathy is seen. No free fluid or inflammatory change is seen. Appendix is seen which is felt to be within normal limits. Bone window settings shows severe and diffuse disc space narrowing within the spine. Anterior wedging is noted of T12 which appears to be old. Impression: 1. Prominent left-sided hydronephrosis caused by a 3.6 mm obstructing stone near the UVJ. 2. Small nonobstructing calculi within both kidneys. 3. No other acute finding is definitely appreciated. Diagnostic code #3 This report was dictated in MDT
[2019-08-28] MEDS ORDERED: Tamsulosin 0.4 MG Cap.ER PO ONE (16:37)
[2019-08-28] MEDS ORDERED: traMADol 50 MG Tab PO ONE (16:54)
[2019-08-28] MEDS ORDERED: Morphine 4 MG/ML Syringe IM ONE (17:23)
[2019-08-28] MEDS ORDERED: Ondansetron 4 MG Tab.DIS ONE (18:34)
[2019-08-28] MEDS ORDERED: Ondansetron 4 MG Tab.DIS PO ONE (18:34)
[2019-08-28 19:03] VITALS: BP 155/84; PULSE 91
== END 2019-08-28 18:50 | disposition home or self-care (01) ==
LOC: MW.ED 15:08
DX: N13.2 Hydronephrosis with renal and ureteral calculous obstruction (principal); E11.9 Type 2 diabetes mellitus without complications; Z79.84 Long term (current) use of oral hypoglycemic drugs; Z88.0 Allergy status to penicillin; Z79.01 Long term (current) use of anticoagulants; Z79.899 Other long term (current) drug therapy
CPT/HCPCS: 36415; 51798; 74176; 80053; 81001; 85025; 87086; 96372; 99284; A9270; J2270

== ENCOUNTER 2019-09-05 06:13 | Day surgery (SDC) | payer MEDICARE, OTHER ==
[~2019-09-05 06:13] MED LIST: Ciprofloxacin in D5W 400 MG in Premix Bag 1 BAG IV ONE; Lactated Ringers 1,000 ML IV SCH; Sodium Chloride 0.9% 10 ML SDV IV PRN; Sodium Chloride 0.9% 10 ML Syringe FLUSH PRN; Sodium Chloride 0.9% 2.5 ML Syringe FLUSH PRN
[2019-09-05] MEDS ORDERED: Propofol 200 MG/20 ML SDV ONE (07:01)
[2019-09-05] MEDS ORDERED: fentaNYL 250 MCG/5 ML SDV ONE (07:01)
[2019-09-05] MEDS ORDERED: Midazolam 1 MG/ML 2 ML SDV ONE (07:01)
[2019-09-05] MEDS ORDERED: Ondansetron 4 MG/2 ML SDV ONE (07:04)
[2019-09-05] MEDS ORDERED: Ciprofloxacin in D5W 200 ML ONE (07:07)
--- NOTE | 2019-09-05 07:24 | PCM.PREANE ---
Preanesthetic Assessment - Anesthesia/Transfusion/Family Hx Anesthesia History: Prior Anesthesia Without Reaction Family History of Anesthesia Reaction: No Transfusion History: Prior Transfusion Without Reaction - Review of Systems General: No Symptoms Pulmonary: No Symptoms Cardiovascular: No Symptoms Gastrointestinal: No Symptoms Neurological: No Symptoms Other: Reports: None - Physical Assessment NPO Status Date: 09/04/19 NPO Status Time: 23:15 Vital Signs: Last Vital Signs Temp 97.5 F 09/05/19 06:40 Pulse 93 09/05/19 06:40 Resp 16 09/05/19 06:40 BP 145/84 H 09/05/19 06:40 Pulse Ox 95 09/05/19 06:40 Height: 5 ft 9 in Weight: 83.915 kg ASA Class: 2 Mental Status: Alert & Oriented x3 Airway Class: Mallampati = 1 Dentition: Reports: Normal Dentition ROM/Head Extension: Full Lungs: Clear to Auscultation, Normal Respiratory Effort Cardiovascular: Regular Rate, Regular Rhythm - Allergies Allergies/Adverse Reactions: Allergies Allergy/AdvReac Type Severity Reaction Status Date / Time adhesive tape Allergy Redness Verified 09/01/19 09:07 gluten Allergy Stomach Verified 09/01/19 09:07 Upset Penicillins Allergy Rash Verified 09/01/19 09:06 - Blood Blood Available: No - Anesthesia Plan Pre-Op Medication Ordered: None - Acknowledgements Anesthesia Type Planned: General Anesthesia Pt an Appropriate Candidate for the Planned Anesthesia: Yes Alternatives and Risks of Anesthesia Discussed w Pt/Guardian: Yes Pt/Guardian Understands and Agrees with Anesthesia Plan: Yes Additional Comments: on xarelto for hx dvt and PE, stopped 5 d ago, bridged with lovenox. last dose 3 pm yeat, ? 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: Musculoskeletal History: Reports: Osteoarthritis, Other (See Below) Other Musculoskeletal History: intermittent back pain Neurological History: Reports: Neuropathy, Peripheral Psychiatric History: Reports: None Endocrine/Metabolic History: Reports: Diabetes, Type II Hematologic History: Reports: Blood Transfusion(s) Other Hematologic History: blood transfusion with mastectomy Immunologic History: Reports: None Oncologic (Cancer) History: Reports: Breast Dermatologic History: Reports: None - Infectious Disease History Infectious Disease History: Reports: Chicken Pox, Measles, Mumps - Past Surgical History Head Surgeries/Procedures: Reports: None HEENT Surgical History: Reports: Tonsillectomy Cardiovascular Surgical History: Reports: None Respiratory Surgical History: Reports: None GI Surgical History: Reports: Colonoscopy Female Surgical History: Reports: Mastectomy, Other (See Below) Other Female Surgeries/Procedures: Breast Surgery - Left mastectomy Endocrine Surgical History: Reports: None Neurological Surgical History: Reports: None Musculoskeletal Surgical History: Reports: Arthroscopic Knee, Joint Replacement, Other (See Below) Other Musculoskeletal Surgeries/Procedures:: partial left knee arthroplasty, right total knee arthroplasty, crystal foot surgery for bunions and hammer toes Oncologic Surgical History: Reports: Mastectomy Other Oncologic Surgeries/Procedures: L mastectomy Dermatological Surgical History: Reports: None - SUBSTANCE USE Smoking Status *Q: Never Smoker Recreational Drug Use History: No - HOME MEDS Home Medications: Home Meds DULoxetine [Cymbalta] 20 mg PO DAILY 01/20/16 [History] Gabapentin [Neurontin] 100 mg PO BID 03/01/17 [History] Acetaminophen/HYDROcodone [[place] 325-5 MG] 1 tab PO Q4H PRN #20 tablet 08/28/19 [Rx] Ondansetron [Zofran ODT] 4 mg PO Q6H PRN #8 tab.dis 08/28/19 [Rx] Tamsulosin HCl [Flomax] 0.4 mg PO DAILY 5 Days #5 capsule 08/28/19 [Rx] metFORMIN [Glucophage XR] 500 mg PO BID 08/28/19 [History] Multivitamin [Multivitamins] 1 tab PO DAILY 09/01/19 [History] Omeprazole 20 mg PO DAILY 09/01/19 [History] Rivaroxaban [Xarelto] 20 mg PO DAILY 09/01/19 [History] - CURRENT (IN HOUSE) MEDS Current Meds: Current Medications Lactated Ringer's (Ringers, Lactated) 1,000 mls @ 100 mls/hr IV ASDIRECTED DAYAN Last Admin: 09/05/19 06:45 Dose: 100 mls/hr Documented by: Sodium Chloride (Saline Flush) 10 ml FLUSH ASDIRECTED PRN PRN Reason: Keep Vein Open Sodium Chloride (Saline Flush) 2.5 ml FLUSH ASDIRECTED PRN PRN Reason: Keep Vein Open Sodium Chloride (Normal Saline) 10 ml IV ASDIRECTED PRN PRN Reason: IV Use Discontinued Medications Fentanyl (Sublimaze) Confirm Administered Dose 250 mcg .ROUTE .STK-MED ONE Stop: 09/05/19 07:02 Ciprofloxacin/Dextrose 400 mg/ (Premix) 200 mls @ 200 mls/hr IV ONCALL ONE Stop: 09/04/19 11:28 Last Admin: 09/05/19 07:08 Dose: 200 mls/hr Documented by: Ciprofloxacin/Dextrose (Cipro In D5w 400 Mg/200 Ml) Confirm Administered Dose 200 mls @ as directed .ROUTE .STK-MED ONE Stop: 09/05/19 07:08 Lidocaine HCl (Xylocaine-Mpf 1%) Confirm Administered Dose 5 ml .ROUTE .STK-MED ONE Stop: 09/05/19 07:05 Midazolam HCl (Versed 1 Mg/Ml) Confirm Administered Dose 2 mg .ROUTE .STK-MED ONE Stop: 09/05/19 07:02 Ondansetron HCl (Zofran) Confirm Administered Dose 4 mg .ROUTE .STK-MED ONE Stop: 09/05/19 07:05 Propofol (Diprivan 20 Ml) Confirm Administered Dose 200 mg .ROUTE .STK-MED ONE Stop: 09/05/19 07:02
[2019-09-05] MEDS ORDERED: Iopamidol 200-M 10 ML vial ITHECAL ONE (07:36)
[2019-09-05] MEDS ORDERED: Succinylcholine/Sod PF 100 MG/5 ML SYRINGE IV ONE (08:24)
[2019-09-05] MEDS ORDERED: fentaNYL 100 MCG/2 ML SDV IVPUSH PRN (08:36)
[2019-09-05] MEDS ORDERED: ePHEDrine 50 MG/ML SDV ONE (08:46)
[2019-09-05] MEDS ORDERED: Acetaminophen/HYDROcodone 325-5 MG Tab PO PRN (09:07)
[2019-09-05] MEDS ORDERED: Ondansetron 4 MG Tab.DIS PO PRN (09:07)
--- NOTE | 2019-09-05 11:11 | PCM.POSTAN ---
POST ANESTHESIA ASSESSMENT - MENTAL STATUS Mental Status: Alert, Oriented - VITAL SIGNS Vital Signs: Last Vital Signs Temp 96.8 F L 09/05/19 09:50 Pulse 90 09/05/19 09:50 Resp 14 09/05/19 09:50 BP 139/82 09/05/19 09:50 Pulse Ox 95 09/05/19 09:50 - RESPIRATORY Respiratory Status: Respiratory Rate WNL, Airway Patent, O2 Saturation Stable - CARDIOVASCULAR CV Status: Pulse Rate WNL, Blood Pressure Stable - GASTROINTESTINAL GI Status: No Symptoms - POST OP HYDRATION Hydration Status: Adequate & Stable
--- NOTE | 2019-09-05 11:11 | PCM48HPAN ---
Post Anesthesia Note - EVALUATION WITHIN 48HRS OF ANESTHETIC Vital Signs in Normal Range: Yes Patient Participated in Evaluation: Yes Respiratory Function Stable: Yes Airway Patent: Yes Cardiovascular Function Stable: Yes Hydration Status Stable: Yes Pain Control Satisfactory: Yes Nausea and Vomiting Control Satisfactory: Yes Mental Status Recovered: Yes Vital Signs: Last Vital Signs Temp 96.8 F L 09/05/19 09:50 Pulse 90 09/05/19 09:50 Resp 14 09/05/19 09:50 BP 139/82 09/05/19 09:50 Pulse Ox 95 09/05/19 09:50
[2019-09-05 12:50] VITALS: BP 140/88; PULSE 85
--- NOTE | 2019-09-05 13:31 | OR ---
SURGEON: Raz Wolff M.D. DATE OF PROCEDURE: 09/05/2019 PREOPERATIVE DIAGNOSIS: Left lower ureteral stone. POSTOPERATIVE DIAGNOSIS: Left lower ureteral stone. OPERATION: Left ureteroscopy, stone removal. DESCRIPTION OF PROCEDURE: The patient was given general anesthesia, placed in dorsal lithotomy position, prepped and draped in sterile drapes. Cystourethroscopy was done that was normal. The guidewire was advanced in the left ureter alongside the stone all the way up into the renal pelvis. The left lower ureter was then dilated using the UroMax II balloon dilator to approximately 15-[place]. The rigid ureteroscope was advanced in the left ureter. The stone was grasped and removed. With that done, the bladder was emptied. The guidewire was removed. The patient was moved to recovery room in good condition. JEFF / JEFFY /[id number]
[2019-09-05] MEDS ORDERED: Gabapentin 100 MG Cap PO SCH (21:00)
[2019-09-05] MEDS ORDERED: metFORMIN 500 MG Tab.ER PO SCH (21:00)
[2019-09-06] MEDS ORDERED: Omeprazole 20 MG Cap.CR PO SCH (07:30)
[2019-09-06] MEDS ORDERED: DULOXETINE 20 MG PO SCH (09:00)
[2019-09-06] MEDS ORDERED: Multivitamin Tab PO SCH (09:00)
[2019-09-06] MEDS ORDERED: Rivaroxaban 10 MG Tab PO SCH (09:00)
== END 2019-09-05 11:16 | disposition home or self-care (01) ==
LOC: MW.SDS 06:13
PROVIDERS: ATTEND Urology
DX: N20.1 Calculus of ureter (principal); E11.42 Type 2 diabetes mellitus with diabetic polyneuropathy; K21.9 Gastro-esophageal reflux disease without esophagitis; Z11.59 Encounter for screening for other viral diseases; Z79.84 Long term (current) use of oral hypoglycemic drugs; Z79.899 Other long term (current) drug therapy; Z88.0 Allergy status to penicillin
CPT/HCPCS: 52352; 82962; 88300; C1769; J0330; J0744; J2001; J2250; J2405; J2704; J3010; J7120; Q9966; U0002

== ENCOUNTER 2020-09-30 06:56 | Day surgery (SDC) | payer MEDICARE, OTHER ==
[~2020-09-30 06:56] MED LIST changes: -Lactated Ringers 1,000 ML IV SCH; -Sodium Chloride 0.9% 10 ML SDV IV PRN; -Sodium Chloride 0.9% 10 ML Syringe FLUSH PRN; -Sodium Chloride 0.9% 2.5 ML Syringe FLUSH PRN
[2020-09-30] MEDS ORDERED: fentaNYL 100 MCG/2 ML SDV ONE (07:02)
[2020-09-30] MEDS ORDERED: Lidocaine 2% 5 ML SDV ONE (07:02)
[2020-09-30] MEDS ORDERED: Ondansetron 4 MG/2 ML SDV ONE (07:02)
[2020-09-30] MEDS ORDERED: propofoL 100 ML ONE (07:02)
[2020-09-30] MEDS ORDERED: Heparin Sodium 100 Units/ML 3 ML Syringe ONE ×2 (07:22→07:27)
[2020-09-30] MEDS ORDERED: Lidocaine 1% 20 ML MDV ONE (07:23)
[2020-09-30] MEDS ORDERED: Bupivacaine 0.5% 30 ML SDV ONE (07:23)
[2020-09-30] MEDS: Lactated Ringers 1,000 ML IV SCH ×2 (07:28→11:20)
[2020-09-30] MEDS ORDERED: Bupivacaine 0.5% 10 ML SDV ONE (07:36)
[2020-09-30] MEDS ORDERED: Albuterol 0.083% 2.5 MG/3 ML Neb Soln NEB PRN (08:10)
[2020-09-30] MEDS ORDERED: Morphine 2 MG/ML SYRINGE IVPUSH PRN (08:10)
[2020-09-30] MEDS ORDERED: Naloxone 0.4 MG/ML Syringe IVPUSH PRN (08:10)
[2020-09-30] MEDS ORDERED: Metoclopramide 10 MG/2 ML SDV IVPUSH PRN (08:10)
[2020-09-30] MEDS ORDERED: fentaNYL 100 MCG/2 ML SDV IVPUSH PRN (08:10)
[2020-09-30] MEDS ORDERED: HYDROmorphone 2 MG/ML Syringe IVPUSH PRN (08:10)
[2020-09-30] MEDS ORDERED: Ondansetron 4 MG/2 ML SDV IVPUSH PRN (08:10)
[2020-09-30] MEDS ORDERED: Dexmedetomidine 200 MCG/2 ML SDV ONE (08:12)
--- NOTE | 2020-09-30 08:13 | PCM.PREANE ---
Preanesthetic Assessment - Anesthesia/Transfusion/Family Hx Anesthesia History: Prior Anesthesia Reaction Family History of Anesthesia Reaction: No Transfusion History: Prior Transfusion Without Reaction Intubation History: Unknown - Review of Systems General: Weakness, Fatigue Pulmonary: No Symptoms Cardiovascular: No Symptoms Gastrointestinal: No Symptoms Neurological: No Symptoms Other: Reports: None - Physical Assessment NPO Status Date: 09/30/20 NPO Status Time: 00:00 Vital Signs: Last Vital Signs Temp 98.1 F 09/30/20 07:10 Pulse Resp 15 09/30/20 07:10 BP 155/89 H 09/30/20 07:10 Pulse Ox 100 09/30/20 07:10 Height: 5 ft 9 in Weight: 193 lb ASA Class: 3 Mental Status: Alert & Oriented x3 Airway Class: Mallampati = 3 Dentition: Reports: Normal Dentition Thyro-Mental Finger Breadths: 2 Mouth Opening Finger Breadths: 3 ROM/Head Extension: Full Lungs: Clear to Auscultation, Normal Respiratory Effort Cardiovascular: Regular Rate, Regular Rhythm - Allergies Allergies/Adverse Reactions: Allergies Allergy/AdvReac Type Severity Reaction Status Date / Time adhesive tape Allergy Redness Verified 09/24/20 14:46 amoxicillin Allergy Rash Verified 09/24/20 14:46 ampicillin Allergy Rash Verified 09/24/20 14:46 gluten Allergy Stomach Verified 09/24/20 14:46 Upset Penicillins Allergy Rash Verified 09/24/20 14:46 PreAnesthesia Questionnaire - Past Health History Medical/Surgical History: Denies Medical/Surgical History HEENT History: Reports: Cataract, Other (See Below) Other HEENT History: wears glasses, hx of fx nose Cardiovascular History: Reports: Blood Clots/VTE/DVT Other Cardiovascular History: hx DVT left leg, takes Losartan because of diabetes Respiratory History: Reports: PE, Sleep Apnea Other Respiratory History: uses BiPAP every night, hx of bilateral PE Gastrointestinal History: Reports: GERD Genitourinary History: Reports: Renal Calculus Other Genitourinary History: passed stone 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: Musculoskeletal History: Reports: Back Pain, Chronic, Osteoarthritis Neurological History: Reports: Concussion, Neuropathy, Peripheral Psychiatric History: Reports: Depression Endocrine/Metabolic History: Reports: Diabetes, Type II Hematologic History: Reports: Blood Transfusion(s) Other Hematologic History: blood transfusion with mastectomy and hip replacement Immunologic History: Reports: None Oncologic (Cancer) History: Reports: Breast Dermatologic History: Reports: None - Infectious Disease History Infectious Disease History: Reports: Chicken Pox, Measles, Mumps - Past Surgical History Head Surgeries/Procedures: Reports: None HEENT Surgical History: Reports: Tonsillectomy Cardiovascular Surgical History: Reports: None Respiratory Surgical History: Reports: None GI Surgical History: Reports: Colonoscopy Female Surgical History: Reports: Breast Reconstruction, Mastectomy, Other (S ee Below) Other Female Surgeries/Procedures: Breast Surgery - Left mastectomy, Axillary Node Dissection, TRAM Flap Reconstruction Endocrine Surgical History: Reports: None Neurological Surgical History: Reports: None Musculoskeletal Surgical History: Reports: Arthroscopic Knee, Hip Replacement, K nee Replacement, Other (See Below) Other Musculoskeletal Surgeries/Procedures:: partial left knee arthroplasty, right total knee arthroplasty, crystal foot surgery for bunions and hammer toes, right WILLEM 1 month ago, Trapeziectomy with Ligament Reconstruction Right Thumb Oncologic Surgical History: Reports: Mastectomy Other Oncologic Surgeries/Procedures: L mastectomy Dermatological Surgical History: Reports: None - SUBSTANCE USE Tobacco Use Status *Q: Never Tobacco User Recreational Drug Use History: No - HOME MEDS Home Medications: Home Meds DULoxetine [Cymbalta] 60 mg PO DAILY 01/20/16 [History] metFORMIN [Glucophage XR] 500 mg PO BID 08/28/19 [History] Multivitamin [Multivitamins] 1 tab PO DAILY 09/01/19 [History] Rivaroxaban [Xarelto] 20 mg PO QPM 09/01/19 [History] Calcium Carb/Vitamin D3/Vit K1 [Calcium + D Soft Chewable Tab] 1 tab PO DAILY 09/24/20 [History] Gabapentin [Neurontin] 100 mg PO DAILY 09/24/20 [History] Gabapentin [Neurontin] 400 mg PO BEDTIME 09/24/20 [History] Ipratropium [place] 1 - 2 spray NASBOTH BID PRN 09/24/20 [History] Losartan Potassium 25 mg PO BEDTIME 09/24/20 [History] Pantoprazole Sodium [Protonix] 40 mg PO QAM 09/24/20 [History] - CURRENT (IN HOUSE) MEDS Current Meds: Current Medications Albuterol (Albuterol 0.083% 2.5 Mg/3 Ml Neb Soln) 2.5 mg NEB ONETIME PRN PRN Reason: Wheezing Droperidol (Droperidol 5 Mg/2 Ml Sdv) 0.625 mg IVPUSH ONETIME PRN PRN Reason: Nausea/Vomiting Fentanyl (Fentanyl 100 Mcg/2 Ml Sdv) 50 mcg IVPUSH Q5M PRN PRN Reason: Pain (mild 1-3) Hydromorphone HCl (Hydromorphone 2 Mg/Ml Syringe) 1 mg IVPUSH Q10M PRN PRN Reason: Pain (moderate 4-6) Lactated Ringer's (Ringers, Lactated) 1,000 mls @ 125 mls/hr IV ASDIRECTED DAYAN Last Admin: 09/30/20 07:28 Dose: 125 mls/hr Documented by: Metoclopramide HCl (Metoclopramide 10 Mg/2 Ml Sdv) 10 mg IVPUSH ONETIME PRN PRN Reason: Nausea/Vomiting Morphine Sulfate (Morphine 10 Mg/Ml Syringe) 2 mg IVPUSH Q10M PRN PRN Reason: Pain (severe 7-10) Naloxone HCl (Naloxone 0.4 Mg/Ml Syringe) 0.1 mg IVPUSH ASDIRECTED PRN PRN Reason: Respiratory Depression Ondansetron HCl (Ondansetron 4 Mg/2 Ml Sdv) 4 mg IVPUSH ONETIME PRN PRN Reason: Nausea/Vomiting Discontinued Medications Bupivacaine HCl (Bupivacaine 0.5% 30 Ml Sdv) Confirm Administered Dose 30 ml .ROUTE .STK-MED ONE Stop: 09/30/20 07:24 Bupivacaine HCl (Bupivacaine 0.5% 10 Ml Sdv) Confirm Administered Dose 10 ml .ROUTE .STK-MED ONE Stop: 09/30/20 07:37 Fentanyl (Fentanyl 100 Mcg/2 Ml Sdv) Confirm Administered Dose 100 mcg .ROUTE .STK-MED ONE Stop: 09/30/20 07:03 Heparin Sodium (Porcine) (Heparin Sodium 100 Units/Ml 3 Ml Syringe) Confirm Administered Dose 300 unit .ROUTE .STK-MED ONE Stop: 09/30/20 07:23 Heparin Sodium (Porcine) (Heparin Sodium 100 Units/Ml 3 Ml Syringe) Confirm Administered Dose 600 unit .ROUTE .STK-MED ONE Stop: 09/30/20 07:28 Ciprofloxacin/Dextrose 400 mg/ (Premix) 200 mls @ 200 mls/hr IV Q12H ONE Stop: 09/30/20 06:59 Last Admin: 09/30/20 07:28 Dose: 200 mls/hr Documented by: Propofol (Diprivan 100 Ml) Confirm Administered Dose 100 mls @ as directed [place] ONE Stop: 09/30/20 07:03 Lidocaine (Lidocaine 2% 5 Ml Sdv) Confirm Administered Dose 5 ml [place]TE [place] ONE Stop: 09/30/20 07:03 Lidocaine HCl (Lidocaine 1% 20 Ml Mdv) Confirm Administered Dose 20 ml .ROUTE .[employer]-MED ONE Stop: 09/30/20 07:24 Ondansetron HCl (Ondansetron 4 Mg/2 Ml Sdv) Confirm Administered Dose 4 mg [place]TE [place] ONE Stop: 09/30/20 07:03
[2020-09-30] MEDS ORDERED: Dexamethasone 4 MG/ML 5 ML MDV ONE (08:20)
--- NOTE | 2020-09-30 09:31 | PCM.POSTAN ---
POST ANESTHESIA ASSESSMENT - MENTAL STATUS Mental Status: Alert, Oriented - VITAL SIGNS Vital Signs: Last Vital Signs Temp 98.1 F 09/30/20 07:10 Pulse Resp 15 09/30/20 07:10 BP 155/89 H 09/30/20 07:10 Pulse Ox 100 09/30/20 07:10 - RESPIRATORY Respiratory Status: Respiratory Rate WNL, Airway Patent, O2 Saturation Stable - CARDIOVASCULAR CV Status: Pulse Rate WNL, Blood Pressure Stable - GASTROINTESTINAL GI Status: No Symptoms - POST OP HYDRATION Hydration Status: Adequate & Stable
--- NOTE | 2020-09-30 09:31 | PCM48HPAN ---
Post Anesthesia Note - EVALUATION WITHIN 48HRS OF ANESTHETIC Vital Signs in Normal Range: Yes Patient Participated in Evaluation: Yes Respiratory Function Stable: Yes Airway Patent: Yes Cardiovascular Function Stable: Yes Hydration Status Stable: Yes Pain Control Satisfactory: Yes Nausea and Vomiting Control Satisfactory: Yes Mental Status Recovered: Yes Vital Signs: Last Vital Signs Temp 98.1 F 09/30/20 07:10 Pulse Resp 15 09/30/20 07:10 BP 155/89 H 09/30/20 07:10 Pulse Ox 100 09/30/20 07:10
[2020-09-30] MEDS ORDERED: Acetaminophen/HYDROcodone 325-10 MG Tab PO PRN (09:37)
--- NOTE | 2020-09-30 09:44 | PCM.OPNOTE ---
- General Post-Op/Procedure Note Date of Surgery/Procedure: 09/30/20 Operative Procedure(s): Placement of Bard port via right cephalic vein approach into the superior vena cava Pre Op Diagnosis: Inadequate venous access Post-Op Diagnosis: Same Anesthesia Technique: General LMA (ASA III) Primary Surgeon: Levi Chavarria Fluid Replacement, Intraop: 1,000 EBL in mLs: 5 Condition: Good Free Text/Narrative:: DICTATION 568206 CPT CODE 50979
[2020-09-30] MEDS ORDERED: Lactated Ringers 1,000 ML IV SCH (09:45)
[2020-09-30 10:33] VITALS: BP 147/72; PULSE 85
--- NOTE | 2020-09-30 10:56 | CR ---
INDICATION: Post port placement. TECHNIQUE: Chest 1 view. COMPARISON: Chest radiograph 03/01/2017. FINDINGS: Interval placement of a right subclavian Port-A-Cath with tip in the upper SVC. Mild low lung volumes with left basilar atelectasis. No pneumothorax. Two tiny nodules in the left midlung, one of which is stable and the other not definitely seen previously. Heart size upper limits of normal. Normal pulmonary vascularity. Multiple surgical clips in the left chest wall. IMPRESSION: 1. Interval placement of a right subclavian Port-A-Cath with tip in the upper SVC. 2. Left basilar atelectasis. Two tiny nodules in the left midlung. Dictated by Cheli Duffy MD @ 09/30/2020 10:55:[address] Cheli Duffy @ Sep 30 2020 10:55AM
--- NOTE | 2020-10-01 14:03 | OR ---
SURGEON: Levi Chavarria M.D. DATE OF PROCEDURE: 09/30/2020 OPERATION PERFORMED: Placement of Bard port via right cephalic vein approach. PRIMARY SURGEON: Levi Chavarria M.D. ANESTHESIA: General LMA. PREOPERATIVE DIAGNOSIS: Desire and need for continuous intravenous access. POSTOPERATIVE DIAGNOSIS: Desire and need for continuous intravenous access. ESTIMATED BLOOD LOSS: 5 mL. INTRAOPERATIVE FLUID REPLACEMENT: 1000 mL of crystalloid. ASA CLASSIFICATION: III. DESCRIPTION OF PROCEDURE: The patient was taken to the operating room and placed on the operating table in the supine position. The surgical site had been marked prior to the patient entering the operating room. Time-out was called for appropriate identification of the patient and procedure. Following attainment of general anesthesia with placement of an LMA, the right chest was prepped with ChloraPrep solution. Sterile drapes were applied. Skin incision was marked out in the right deltopectoral groove. The skin was infiltrated with 1% plain Xylocaine. Skin incision was made and deepened through the subcutaneous tissue down to the deltopectoral groove, where the cephalic vein was identified. The cephalic vein was of excellent quality. 1 mL of Xylocaine was squirted around the cephalic vein. The cephalic vein was circumferentially dissected free and encircled with 2-0 Vicryl ties. The distal tie was secured and a small venotomy was made. The heparin flushed catheter was positioned with the use of fluoroscopy through the cephalic vein into the superior vena cava. This was confirmed fluoroscopically. The catheter flushed easily and irrigated well. The two proximal Vicryl ties were secured to secure the catheter in place. Appropriate site on the right anterior chest wall was now chosen for placement of the port. The skin was infiltrated with 1% Xylocaine and 0.5% Marcaine solution. Skin incision was made and deepened through the subcutaneous tissue obtaining hemostasis with the use of electrocautery. Dissection was carried down to the clavipectoral fascia. The port which had previously been flushed with heparin was now brought to the operating table and the port pocket felt to be adequate. With that accomplished, using the tunneling device, the catheter was secured in a subcutaneous tunnel and brought from the deltopectoral incision to the chest wall incision. Care was taken to keep the catheter occluded to avoid an air embolus. Once the catheter was positioned in the subcutaneous tunnel, again with the catheter clamped, the catheter was cut to appropriate length, and the port and catheter were assembled with the connector holding it in place. The port was then secured to the anterior chest wall using interrupted 2-0 silk sutures. The port was then accessed and flushed easily and aspirated easily. With that accomplished, the wounds were inspected for hemostasis and small bleeding sites were electrocoagulated. The incisions were both closed in two layers approximating the subcutaneous tissue with 3-0 Vicryl and the skin with subcuticular 4-0 Monocryl. Both incisions were Steri-Stripped and dressed with sterile Tegaderm pads. Sponge, needle, and instrument counts were all correct. The patient tolerated the procedure well and following extubation, was taken to recovery room in satisfactory condition. Postop chest x-ray will be obtained in recovery room. SHANNON BARDALES /[id number]
--- NOTE | 2020-10-02 09:02 | CR ---
Indication: Port-A-Cath placement right side. Technique: Fluoroscopy provided during Port-A-Cath placement. 8.4 seconds fluoro time. One image. Comparison: Chest radiograph 03/01/2017. Findings/Impression : A single fluoroscopic spot image demonstrates placement of a right sided Port-A-Cath with tip in the SVC. Dictated by Cheli Duffy MD @ 10/02/2020 9:01:[address] Cheli Duffy @ Oct 02 2020 9:01AM
== END 2020-09-30 11:05 | disposition home or self-care (01) ==
LOC: MW.SDS 06:56
PROVIDERS: ATTEND Surgery
DX: Z45.2 Encounter for adjustment and management of vascular access device (principal); I87.8 Other specified disorders of veins; M19.90 Unspecified osteoarthritis, unspecified site; Z85.3 Personal history of malignant neoplasm of breast; Z88.1 Allergy status to other antibiotic agents; Z88.0 Allergy status to penicillin; Z91.09 Other allergy status, other than to drugs and biological substances
CPT/HCPCS: 36571; 71045; 76000; C1788; J0744; J1100; J1642; J2704; J3490; J7120; 00400; 99100; J2405; J3010

== ENCOUNTER 2021-02-23 19:37 | Emergency (ER) | payer MEDICARE, OTHER ==
--- NOTE | 2021-02-23 19:55 | EDM.PDOC ---
ED HPI GENERAL MEDICAL PROBLEM - General Chief Complaint: Lower Extremity Injury/Pain Stated Complaint: left foot giving shocks Time Seen by Provider: 02/23/21 19:48 - History of Present Illness INITIAL COMMENTS - FREE TEXT/NARRATIVE: History of present illness: [] The patient has sudden worsening of chronic left foot pain she attributes to hammer toes and diabetic complications. She can't tolerate it. In September, because of poor venous access and a left mastectomy, she had a port inserted pre operatively and was to have surgery on her left hip and her left foot. The hip surgery was accomplished but the foot was not addressed. She is expecting Dr. Joseph the science editor in [place] to arrange foot surgery and hoping this wiell help with her pain. The surgery has not been arranged yet. The pain management is complicated by the fact she has had difficulty ceasing use of narcotics in the past when she became dependent on prescribed pain killers. Also, she is not supposed to take NSAID's because whe is on Xarelto for history DVT multiple times. Review of systems: As per history of present illness and below otherwise all systems reviewed and negative. Past medical history: As per history of present illness and as reviewed below otherwise noncontributory. Surgical history: As per history of present illness and as reviewed below otherwise noncontributory. Social history: No reported history of drug or alcohol abuse. Family history: As per history of present illness and as reviewed below otherwise noncontributory. Physical exam: Constitutional - well developed, well-nourished and in no acute distress HEENT - normocephalic, no evidence of trauma - external nose and mouth normal - no mass in neck and no JVD - mucosae moist EYES - full EOM, PERRL, no icterus - no evidence of inflammation, injection, or drainage Respiratory - no respiratory distress, equal bilateral expansion Musculoskeletal deformed toes in left foot. Tender MPJ 1 and 2 left foot with hammer toe #2. No redness or heat in the area and no increase pain with MPJ movement of either toe. Otherwise no gross deformity of long bones or joints - no tenderness, swelling or edema Neurologic - Alert and oriented times four - CN II-XII grossly intact - motor sensory and coordination symmetrically normal Psychiatric - appropriate mood and affect with normal thought content Hematologic - No petechiae or purpura - mucosa appropriate color and sclera not pale - normal nail bed color and refill Integument - no rash or evidence of trauma - normal turgor Diagnostics: [] Therapeutics: [] Impression: [] Plan: [] Definitive disposition and diagnosis as appropriate pending reevaluation and review of above. Left Feet Pain Score (Numeric/FACES): 3 - Related Data Allergies Allergy/AdvReac Type Severity Reaction Status Date / Time adhesive tape Allergy Redness Verified 02/23/21 19:44 amoxicillin Allergy Rash Verified 02/23/21 19:44 ampicillin Allergy Rash Verified 02/23/21 19:44 gluten Allergy Stomach Verified 02/23/21 19:44 Upset Penicillins Allergy Rash Verified 02/23/21 19:44 Home Meds: Home Meds DULoxetine [Cymbalta] 60 mg PO DAILY 01/20/16 [History] metFORMIN [Glucophage XR] 500 mg PO BID 08/28/19 [History] Multivitamin [Multivitamins] 1 tab PO DAILY 09/01/19 [History] Rivaroxaban [Xarelto] 20 mg PO QPM 09/01/19 [History] Calcium Carb/Vitamin D3/Vit K1 [Calcium + D Soft Chewable Tab] 1 tab PO DAILY 09/24/20 [History] Gabapentin [Neurontin] 100 mg PO DAILY 09/24/20 [History] Gabapentin [Neurontin] 400 mg PO BEDTIME 09/24/20 [History] Ipratropium [place] 1 - 2 spray NASBOTH BID PRN 09/24/20 [History] Losartan Potassium 25 mg PO BEDTIME 09/24/20 [History] Pantoprazole Sodium [Protonix] 40 mg PO QAM 09/24/20 [History] predniSONE [Prednisone] 60 mg PO DAILY 5 Days #15 tablet 02/23/21 [Rx] Past Medical History - Past Health History Medical/Surgical History: Denies Medical/Surgical History HEENT History: Reports: Cataract, Other (See Below) Other HEENT History: wears glasses, hx of fx nose Cardiovascular History: Reports: Blood Clots/VTE/DVT Other Cardiovascular History: hx DVT left leg, takes Losartan because of diabetes Respiratory History: Reports: PE, Sleep Apnea Other Respiratory History: uses BiPAP every night, hx of bilateral PE Gastrointestinal History: Reports: GERD Genitourinary History: Reports: Renal Calculus Other Genitourinary History: passed stone 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: Musculoskeletal History: Reports: Back Pain, Chronic, Osteoarthritis Neurological History: Reports: Concussion, Neuropathy, Peripheral Psychiatric History: Reports: Depression Endocrine/Metabolic History: Reports: Diabetes, Type II Insulin Pump Model and Employment 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: None Hematologic History: Reports: Blood Transfusion(s) Other Hematologic History: blood transfusion with mastectomy and hip replacement Immunologic History: Reports: None Oncologic (Cancer) History: Reports: Breast Dermatologic History: Reports: None - Infectious Disease History Infectious Disease History: Reports: Chicken Pox, Measles, Mumps - Past Surgical History Head Surgeries/Procedures: Reports: None HEENT Surgical History: Reports: Tonsillectomy Cardiovascular Surgical History: Reports: None Respiratory Surgical History: Reports: None GI Surgical History: Reports: Colonoscopy Female Surgical History: Reports: Breast Reconstruction, Mastectomy, Other (See Below) Other Female Surgeries/Procedures: Breast Surgery - Left mastectomy, Axillary Node Dissection, TRAM Flap Reconstruction Endocrine Surgical History: Reports: None Neurological Surgical History: Reports: None Musculoskeletal Surgical History: Reports: Arthroscopic Knee, Hip Replacement, Knee Replacement, Other (See Below) Other Musculoskeletal Surgeries/Procedures:: partial left knee arthroplasty, right total knee arthroplasty, crystal foot surgery for bunions and hammer toes, right WILLEM 1 month ago, Trapeziectomy with Ligament Reconstruction Right Thumb Oncologic Surgical History: Reports: Mastectomy Other Oncologic Surgeries/Procedures: L mastectomy Dermatological Surgical History: Reports: None Social & Family History - Family History Family Medical History: No Pertinent Family History - Tobacco Use Tobacco Use Status *Q: Never Tobacco User Second Hand Smoke Exposure: No - Caffeine Use Caffeine Use: Reports: Coffee - Recreational Drug Use Recreational Drug Use: No Review of Systems - Review of Systems Review Of Systems: Comprehensive ROS is negative, except as noted in HPI. ED EXAM, GENERAL - Physical Exam Exam: See Below Free Text/Narrative:: My physical exam is in the HPI Course - Vital Signs Last Recorded V/S: Last Vital Signs Temp 36.1 C 02/23/21 19:39 Pulse 89 02/23/21 19:39 Resp 16 02/23/21 19:39 BP 152/91 H 02/23/21 19:39 Pulse Ox 100 02/23/21 19:39 - Orders/Labs/Meds Meds: Medications Discontinued Medications Generic Name Dose Route Start Last Admin Trade Name Freq PRN Reason Stop Dose Admin Dexamethasone 10 mg 02/23/21 20:05 02/23/21 20:18 Dexamethasone 10 Mg/Ml Sdv IM 02/23/21 20:06 10 mg STAT STA Administration - Re-Assessments/Exams Free Text/Narrative Re-Assessment/Exam: 02/23/21 20:49 Patient feels better but has occasional twinges of severe pain. She wants to go home and try the steroid and follow-up with podiatry. Departure - Departure Time of Disposition: 20:49 Disposition: Home, Self-Care 01 Condition: Good Clinical Impression: Foot pain, left - Discharge Information Prescriptions: predniSONE [Prednisone] 60 mg PO DAILY 5 Days #15 tablet Instructions: Foot Pain Referrals: PCP,Kimberly [Primary Care Provider] - Margarito Washburn DPM [Physician] - Forms: ED Department Discharge Additional Instructions: Follow-up with your science editor or call the science editor here locally Dr. Ko. Your prescription was sent to in the pharmacy. There is no pharmacy open [facility] at the moment. In the will open tomorrow morning. [facility] - Primary Care [address] [place] [address] [place] [address] The following information is given to patients seen in the emergency department who are being discharged to home. This information is to outline your options for follow-up care. We provide all patients seen in our emergency department with a follow-up referral. The need for follow-up, as well as the timing and circumstances, are variable depending upon the specifics of your emergency department visit. If you don't have a primary care physician on staff, we will provide you with a referral. We always advise you to contact your personal physician following an emergency department visit to inform them of the circumstance of the visit and for follow-up with them and/or the need for any referrals to a consulting specialist. The emergency department will also refer you to a specialist when appropriate. This referral assures that you have the opportunity for follow-up care with a specialist. All of these measure are taken in an effort to provide you with opt imal care, which includes your follow-up. Under all circumstances we always encourage you to contact your private physician who remains a resource for coordinating your care. When calling for follow-up care, please make the office aware that this follow-up is from your recent emergency room visit. If for any reason you are refused follow-up, please contact the [facility] Emergency Department at and asked to speak to the emergency department charge nurse. Sepsis Event Note (ED) - Evaluation Sepsis Screening Result: No Definite Risk - Focused Exam Vital Signs: Vital Signs Temp Pulse Resp BP Pulse Ox 02/23/21 19:39 36.1 C 89 16 152/91 H 100
[2021-02-23] MEDS ORDERED: Dexamethasone 10 MG/ML SDV IM STA (20:05)
[2021-02-23 21:08] VITALS: BP 148/84; PULSE 95
== END 2021-02-23 21:05 | disposition home or self-care (01) ==
LOC: MW.ED 19:37
DX: M79.672 Pain in left foot (principal); K21.9 Gastro-esophageal reflux disease without esophagitis; E11.9 Type 2 diabetes mellitus without complications; Z86.718 Personal history of other venous thrombosis and embolism; Z91.048 Other nonmedicinal substance allergy status; Z88.0 Allergy status to penicillin; Z91.018 Allergy to other foods; Z79.84 Long term (current) use of oral hypoglycemic drugs; Z79.01 Long term (current) use of anticoagulants; Z79.899 Other long term (current) drug therapy
CPT/HCPCS: 96372; 99283; J1100

== ENCOUNTER 2023-08-20 10:41 | Emergency (ER) | payer MEDICARE, OTHER ==
[2023-08-20 11:51] LABS: BASOPHILS ABSOLUTE AUTO 0.06 K/uL (0.00-0.20); BASOPHILS PERCENT AUTO 0.8 % (0.0-1.0); EOSINOPHILS ABSOLUTE AUTO 0.19 K/uL (0.00-0.45); EOSINOPHILS PERCENT AUTO 2.5 % (0.0-6.0); HEMATOCRIT 32.1 % (37.0-47.0); HEMOGLOBIN 10.3 g/dL (12.0-16.0); IMMATURE GRAN ABSOLUTE AUTO 0.02 K/uL (0.00-0.05); IMMATURE GRAN PERCENT AUTO 0.3 % (0.0-0.4); LYMPHOCYTES ABSOLUTE AUTO 1.16 K/uL (1.00-4.80); LYMPHOCYTES PERCENT AUTO 15.5 % (24.0-44.0); MEAN CORPUSCULAR HEMOGLOBIN 29.1 pg (28.0-32.0); MEAN CORPUSCULAR HGB CONC 32.1 g/dL (32.0-36.0); MEAN CORPUSCULAR VOLUME 90.7 fL (83.0-99.0); MONOCYTES ABSOLUTE AUTO 0.69 K/uL (0.00-0.80); MONOCYTES PERCENT AUTO 9.2 % (0.0-8.0); NEUTROPHILS ABSOLUTE AUTO 5.34 K/uL (1.80-7.70); NEUTROPHILS PERCENT AUTO 71.7 % (41.0-71.0); PLATELET COUNT,PLT 335 K/uL (150-400); RED BLOOD CELL COUNT 3.54 M/uL (4.10-5.30); WHITE BLOOD CELL COUNT,WBC 7.46 K/uL (3.9-11.3)
[2023-08-20] MEDS: Sodium Chloride 0.9% 10 ML Syringe FLUSH PRN (11:59)
[2023-08-20] MEDS: Morphine 2 MG/ML SYRINGE IVPUSH ONE ×2 (11:59→14:23)
[2023-08-20] MEDS: Ondansetron 4 MG/2 ML SDV IVPUSH ONE (11:59)
[2023-08-20] MEDS: Sodium Chloride 0.9% 2.5 ML Syringe FLUSH PRN (12:00)
[2023-08-20 12:09] LABS: INR 1.11 (0.86-1.11); PTT,PARTIAL THROMBOPLSTIN TIME 30.8 SEC (23.9-30.7)
[2023-08-20 12:20] LABS: CALCIUM 7.9 mg/dL (8.5-10.1); CARBON DIOXIDE,CO2 26.1 mmol/L (21.0-32.0); EST CRCL DRUG DOSING (CG) 53.14 mL/min; POTASSIUM,K 4.2 mmol/L (3.5-5.1)
[2023-08-20] MEDS: Sodium Chloride 0.9% 1,000 ML IV ONE (13:35)
[2023-08-20] MEDS: Propofol 200 MG/20 ML SDV IVPUSH ONE ×2 (13:40→13:41)
[2023-08-20] MEDS: Morphine 15 MG Tab.ER PO ONE (15:53)
[2023-08-20 18:46] VITALS: BP 176/87; PULSE 89
== END 2023-08-20 18:49 | disposition home or self-care (01) ==
LOC: MW.ED 10:41
DX: S52.501A Unspecified fracture of the lower end of right radius, initial encounter for closed fracture (principal); E11.42 Type 2 diabetes mellitus with diabetic polyneuropathy; K21.9 Gastro-esophageal reflux disease without esophagitis; Z79.899 Other long term (current) drug therapy; Z79.84 Long term (current) use of oral hypoglycemic drugs; Z88.2 Allergy status to sulfonamides; Z91.048 Other nonmedicinal substance allergy status; Z91.018 Allergy to other foods; W01.0XXA Fall on same level from slipping, tripping and stumbling without subsequent striking against object, initial encounter
CPT/HCPCS: 25605; 36415; 70450; 72125; 73110; 80048; 84484; 85025; 85610; 85730; 96374; 96375; 96376; 99152; 99284; A9270; J2270; J2405; J2704; J3490; J7030